=== PATIENT | male | born 1935 | race Caucasian/White ===

== ENCOUNTER 2022-05-04 07:23 | Inpatient (IN) ==
[2022-05-04] MEDS ORDERED: 0.9 % SODIUM CHLORIDE 500 ML IV ONE (07:46)
[2022-05-04] MEDS ORDERED: PHENobarb/HYOSCY/ATROPINE/SCOP 1 DOSE BOTTLE PO ONE (07:48)
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
--- NOTE | 2022-05-04 08:31 | XRay Report ---
INDICATION: Abdominal pain TECHNIQUE: Supine and upright abdomen. COMPARISON: None FINDINGS:Distended gas-filled small bowel with maximum cross-sectional diameter of 5 cm. There is gas and fecal material within the colon. Appearance is consistent with mechanical small bowel obstruction. No pneumoperitoneum. No biliary or portal venous gas. No pneumatosis. No focal abnormality IMPRESSION: 1. Distended distal small bowel consistent with mechanical small bowel obstruction 2. No pneumoperitoneum. Interpreted and Authenticated by: Umberto Gee 05/04/22
[2022-05-04 08:32] LABS: Basophils # (Auto) 0.02 K/mcL (0.00-0.30); Basophils % (Auto) 0.3 % (0.0-2.0); Eosinophils # (Auto) 0 K/mcL (0.00-0.70); Eosinophils % (Auto) 0 % (0.0-7.0); Hematocrit 44.2 % (40.1-51.0); Lymphocytes # (Auto) 0.61 K/mcL (1.50-4.80); Lymphocytes % (Auto) 8.5 % (15.5-49.0); Mean Corpuscular HGB Conc 33.9 g/dL (31.0-36.0); Mean Platelet Volume 10.5 fL (7.4-10.4); Monocytes # (Auto) 0.84 K/mcL (0.10-0.90); Monocytes % (Auto) 11.7 % (1.0-12.0); Neutrophils % (Auto) 79.1 % (38.0-78.0); Platelet Count 144 K/mcL (140-440); Red Cell Distribution Width 12.6 % (11.5-14.5); WBC 7.2 K/mcL (4.5-11.0)
[2022-05-04 09:02] LABS: ALT/SGPT 11 U/L (<40); AST/SGOT 19 U/L (<40); Albumin 3.9 gm/dL (3.2-5.2); Albumin/Globulin Ratio 1.5 (1.0-2.3); Alkaline Phosphatase 73 U/L (39-117); Amylase 29 U/L (28-100); Bilirubin,Total 1.1 mg/dL (0.1-1.0); Blood Urea Nitrogen 27 mg/dL (8-23); Calcium 8.8 mg/dL (8.6-10.4); Carbon Dioxide 16 mmol/L (22-30); Chloride 101 mmol/L (96-108); Globulin 2.6 gm/dL (2.2-3.7); Glomerular Filtration Rate 68; Glucose 171 mg/dL (70-105)
--- NOTE | 2022-05-04 09:48 | Cat Scan Report ---
INDICATION: Abdominal pain. SB obs per x ray. Iodine allergy COMPARISON: None. TECHNIQUE: Axial images were obtained through the abdomen and pelvis. Sagittally and coronally reformatted images. FINDINGS: Lung bases:There is reticular abnormality at both lung bases. There is no honeycombing. There is no bronchiectasis. Mild nonspecific pulmonary fibrosis is possible. There is cardiomegaly. There is prominent coronary artery calcification. Liver:Negative to the limits of noncontrast enhanced examination. Liver contour is smooth without evidence for cirrhosis Gallbladder, bilary:Gallbladder is not identified. No dilated bile ducts Spleen:No splenomegaly Pancreas:No pancreatic mass. No peripancreatic abnormality Adrenal glands:Negative Kidneys,ureters,bladder:No solid renal mass. No hydronephrosis. No obstructing or nonobstructing calculi. No hydroureter. No ureteral calculus. No bladder stone. No detectable bladder mass. Gastrointestinal:There is prominent fecal material within the colon, especially sigmoid colon. Findings suggest constipation. There is no detectable colonic mass. There is distended jejunum. This is predominantly fluid-filled. Jejunum measures 3.5 cm in cross-sectional diameter. Appearance is consistent with mechanical small bowel obstruction. This may be partial or early as there is a large amount of stool in the colon. A well-defined transition point is not identified. There is no evidence for closed loop obstruction. Stomach appears normal. There is a 3 cm duodenal diverticulum. Appendix: The appendix is not well visualized. No evidence for appendicitis. Vascular:There is calcification of the abdominal aorta. No abdominal aortic aneurysm Lymphatic:No retroperitoneal adenopathy. No significant mesenteric adenopathy. Mesentery, peritoneum:No free intraperitoneal fluid. No intra-abdominal abscess. No pneumoperitoneum Reproductive:Prostate is not significantly enlarged Musculoskeletal:Severe multilevel degenerative disc disease. The L4 and L5 vertebral bodies are fused. There is severe degenerative disc narrowing at L2-3 and L5-S1. There appears to be pseudoarthrosis at the L3-4 level. There is multilevel degenerative facet arthropathy with osseous and ligamentous hypertrophy. There is multilevel spinal canal stenosis. Sacrum and pelvis are negative. There is no hip fracture. No anterior abdominal wall or inguinal hernia. IMPRESSION: 1. Distended fluid-filled jejunum consistent with mechanical small bowel obstruction. This may be partial or early. There is no evidence for closed loop obstruction. 2. Prominent fecal material consistent with constipation 3. Reticular abnormality of both lung bases. Findings are consistent with nonspecific fibrotic change 4. Cardiomegaly and severe coronary artery calcification 5. Severe degenerative disc disease and facet arthropathy. Findings consistent with L3 for pseudoarthrosis. There are spinal canal stenoses. The exam was performed using radiation dose optimization techniques including, but not limited to, automated exposure control, adjustment of the mA and/or kV according to patient size and use of iterative reconstruction technique. Interpreted and Authenticated by: Umberto Gee 05/04/22
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
[2022-05-04] MEDS ORDERED: MAGNESIUM SULFATE 2 GM/50 ML BAG IV PRN (12:40)
[2022-05-04] MEDS ORDERED: ONDANSETRON 4 MG/2 ML VIAL IV PRN (12:40)
[2022-05-04] MEDS ORDERED: PROCHLORPERAZINE 10 MG/2 ML VIAL IV PRN (12:40)
[2022-05-04] MEDS ORDERED: IPRATROPIUM/ALBUTEROL 3 ML AMPUL.NEB NEB PRN (12:40)
[2022-05-04] MEDS ORDERED: DEXTROSE 31 GM ORAL.SUSP PO PRN (12:40)
[2022-05-04] MEDS ORDERED: DEXTROSE 50% 50 ML VIAL IV PRN (12:40)
[2022-05-04] MEDS ORDERED: POTASSIUM CHLORIDE 40 MEQ in DEXTROSE 5% IN WATER 500 ML IV PRN (12:40)
[2022-05-04] MEDS ORDERED: 0.9 % SODIUM CHLORIDE 250 ML IV ONE (12:40)
[2022-05-04] MEDS ORDERED: ACETAMINOPHEN 325 MG TABLET PO PRN (12:40)
[2022-05-04] MEDS ORDERED: POTASSIUM CHLORIDE 20 MEQ TABLET PO PRN ×2 (12:40)
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
[2022-05-04] MEDS: 0.9 % SODIUM CHLORIDE 10 ML SYRINGE IV SCH ×2 (14:26→14:30)
[2022-05-04 15:46] LABS: Appearance,Urine Clear (Clear); Bilirubin,Urine Negative (Negative); Color,Urine Yellow; Culture Indicated,Urine No; Ketones,Urine 80 mg/dL mg/dL (Negative); Leukocyte Esterase,Urine Negative /uL (Negative); Mucus,Urine FEW /hpf; Nitrate,Urine Negative (Negative); PH,Urine 5.5 (5.0-9.0); Protein,Urine Negative (Negative); Urine Blood Negative ery/mcL (Negative); Urine RBC 2 /hpf (0-3); Urine Squamous Epithelial Cell 0 /hpf (0-4); Urine WBC 1 /hpf (0-4); Urobilinogen,Urine Normal
[2022-05-04] MEDS ORDERED: INSULIN LISPRO 1 UNIT/0.01 ML UNIT SQ SCH (17:00)
[2022-05-04] MEDS ORDERED: DIATRIZOATE MEGLU/DIATRIZO SOD 120 ML BOTTLE PO ONE (17:26)
--- NOTE | 2022-05-04 17:35 | XRay Report ---
INDICATION: pSBO TECHNIQUE: 480 mL water soluble contrast material was given. Serial imaging to 2 hours post ingestion. COMPARISON: Previous CT scan dated 05/04/2022 FINDINGS: At 2 hours post ingestion there is water-soluble contrast material throughout the small and large bowel. Small bowel is mildly prominent. There is no high-grade obstruction at this time. There is contrast material within the rectum. This study was terminated at this time. IMPRESSION: 1. Mildly dilated small bowel 2. Water-soluble contrast material passes through the entire small and large bowel by 2 hours postingestion. Interpreted and Authenticated by: Umberto Gee 05/04/22
--- NOTE | 2022-05-04 20:06 | Discharge Summary ---
Discharge Provider Provider IMPORTANT FOLLOW-UP INFORMATION FOR PCP: Patient information: Note initiated : 05/04/22 at 8:05 pm Service Date, if different from initiated Date: [] Patient: Tigre Flores 86 y/o M admitted on 05/04/22 for Abdominal Pain. Chief Complaint: [] Date of admission: 05/04/22 12:06 Discharge date: 05/04/22 Primary care physician: Robert Carmichael MD Consults: 05/04/22 Consult to Physician [CONS] Stat Comment: Consulting Provider: Sundeep Appiah Reason For Exam: Physician to Consult Consult to Physician [CONS] Stat Comment: Consulting Provider: Juan Rea Reason For Exam: Physician to Consult COURSE Hospital Course Hospital course: History of present illness: Mr. Flores is a 86 year old M Presents to the ED with abdominal discomfort which he describes is more of a heaviness and not a pain. Generalized abdomen and nonradiating. Last bowel movement he thinks was the fourth or maybe the third. Symptoms started on the fourth where he started develop some acid reflux and felt some heaviness in his abdomen like he said he has had before when he has not had a bowel movement in a while. Symptoms continued through today which led him into the ED. Imaging showed small bowel obstruction. Álvaro was contacted and he requested hospitalist involved because the patient has a history of dilated cardiomyopathy. From a cardiac standpoint patient has been stable for some time he is off cardiology last year and did not have any changes. His echo in 2017 showed a good ejection fraction which was quite improved from an even older echo. Patient also has diabetes. She denies nausea vomiting. Patient has had several procedures in the distant past including appendectomy and what sounds like an exploratory laparotomy Patient followed bowel small through ordered by surgery. Patient had multiple bowel movements. Patient tolerating diet with no pain no nausea and wanting to go home. Cleared by surgery to go home. Patient small bowel obstruction resolved faster than expected. A/P: *SBO: *h/o dilated CMP w/good EF on last echo: stable -ACID -has been stable and last saw cardio last summer w/o any changes -cont home BB/ARB/Lasix *DM: a1c 7.9 *HTN: cont home meds *CKD II: Discharge diagnosis: Small bowel obstruction Secondary discharge diagnosis: History of dilated cardiomyopathy with improvement in EF, diabetes hypertension chronic kidney disease Time Spent with Patient Time attestation: Total time spent providing and/or coordinating discharge services: Time spent: Greater than 30 minutes EXAM Constitutional Vitals: Temp Pulse Resp BP Pulse Ox 99.8 F H 97 H 22 100/60 94 05/04/22 16:40 05/04/22 16:40 05/04/22 16:40 05/04/22 16:40 05/04/22 16:40 Discharge Data Data Completed and Pending Labs on day of discharge: Labs from last 24 hours 05/04/22 05/04/22 05/04/22 13:42 07:58 07:57 WBC 7.2 RBC 4.70 Hgb 15.0 Hct 44.2 MCV 94.0 MCH 31.9 MCHC 33.9 RDW 12.6 Plt Count 144 MPV 10.5 H Immature Gran % (Auto) 0.4 Neut % (Auto) 79.1 H Lymph % (Auto) 8.5 L [place] % (Auto) 11.7 Eos % (Auto) 0 Baso % (Auto) 0.3 Lymph # (Auto) 0.61 L [place] # (Auto) 0.84 Eos # (Auto) 0 Baso # (Auto) 0.02 Immature Gran # 0.03 Absolute Neutrophils 5.74 Sodium 136 Potassium 4.1 Chloride 101 Carbon Dioxide 16 L Anion Gap 19.0 H BUN 27 H Creatinine 1.0 GFR Calculation 68 Glucose 171 H Calcium 8.8 Total Bilirubin 1.1 H AST 19 ALT 11 Alkaline Phosphatase 73 Total Protein 6.5 Albumin 3.9 Globulin 2.6 Albumin/Globulin Ratio 1.5 Amylase 29 Lipase 11 Urine Color Yellow Urine Appearance Clear Urine pH 5.5 Ur Specific [place] 1.020 Urine Protein Negative Urine Glucose (UA) 500 mg/dl A Urine Ketones 80 mg/dl A Urine Occult Blood Negative Urine Nitrate Negative Urine Bilirubin Negative Urine Urobilinogen Normal Ur Leukocyte Esterase Negative Urine RBC 2 Urine WBC 1 Ur Squamous Epith Cells 0 Urine Bacteria None Urine Mucus Few A Ur Culture Indicated? No Discharge Plan Patient/Caregiver Discharge Instructions Activity: increase activity as tolerated Diet: Regular Diet Prescriptions: Continued Jardiance 25 mg tablet 25 mg PO QDAY Qty: 90 1RF (DME) FreeStyle Sterling 14 Day Sensor Kit See Rx Instructions .Route Qty: 2 6RF Rx Instructions: As directed check blood sugar 3 times daily aspirin 81 mg tablet,delayed release (DR/EC) 81 mg PO QDAY 0RF magnesium oxide 400 mg magnesium capsule 400 mg PO QDAY 0RF furosemide 20 mg tablet 20 mg PO PRN 0RF potassium chloride 10 mEq capsule, extended release 10 meq PO PRN 0RF ascorbic acid (vitamin C) 500 mg tablet 500 mg PO QDAY 0RF cholecalciferol (vitamin D3) 50 mcg (2,000 unit) capsule 50 mcg PO QDAY 0RF carvedilol [Coreg] 6.25 mg tablet See Rx Instructions PO BID 0RF Rx Instructions: 1.5 tabs PO twice a day; (DME) FreeStyle [place] 14 Day [place] Misc See Rx Instructions .Route Qty: 2 6RF Rx Instructions: As directed check blood sugar 3 times daily losartan 25 mg tablet 25 mg PO QDAY 0RF metformin 500 mg tablet,ER [email or web address] 24 hr 500 mg PO QDAY 0RF Follow Up Plan Follow up with: Robert Carmichael MD [Primary Care Provider] - Patient Disposition: Home, Self-Care Overall status at discharge: patient is not back to baseline Discharge Orders: Discharge Order (Routine); Ordered 05/04/22 Ordered By: Sundeep Appiah [facility] VTE Deep Vein Thrombosis/Pulmonary Embolism Present on Admission: No
[2022-05-04] MEDS ORDERED: FUROSEMIDE 20 MG TABLET PO SCH (20:15)
[2022-05-04] MEDS ORDERED: CARVEDILOL 6.25 MG TABLET PO SCH (21:00)
[2022-05-04] MEDS ORDERED: HEPARIN 5,000 UNIT/ML VIAL SQ SCH (21:00)
[2022-05-05] MEDS ORDERED: LOSARTAN 25 MG TABLET PO SCH (09:00)
[2022-05-05] MEDS ORDERED: MAGNESIUM OXIDE 400 MG TABLET PO SCH (09:00)
[2022-05-05] MEDS ORDERED: ASPIRIN 81 MG TAB.CHEW PO SCH (09:00)
== END 2022-05-04 21:44 | disposition home or self-care (01) | DRG 389 ==
LOC: ED 07:23 → MEDSUR 12:06
PROVIDERS: ADMIT Internal Medicine; ATTEND Internal Medicine